=== PATIENT | female | born 1930 | race Two or more races ===

== ENCOUNTER 2017-06-26 10:06 | Outpatient (CLI) | payer MEDICARE, BC | END 2017-06-26 23:59 | disposition home or self-care (01) | LOC: CARD 10:06 | PROVIDERS: ATTEND Internal Medicine Interventional Cardiology | DX: R09.89 Other specified symptoms and signs involving the circulatory and respiratory systems (principal) | CPT/HCPCS: 93880-TC ==

== ENCOUNTER 2017-11-06 10:56 | Outpatient (CLI) | payer MEDICARE, BC | END 2017-11-06 23:59 | disposition home or self-care (01) | LOC: CARD 10:56 | PROVIDERS: ATTEND Internal Medicine Interventional Cardiology | DX: I82.409 Acute embolism and thrombosis of unspecified deep veins of unspecified lower extremity (principal); M79.605 Pain in left leg; M79.604 Pain in right leg; M79.89 Other specified soft tissue disorders; I10 Essential (primary) hypertension; E78.5 Hyperlipidemia, unspecified; M19.90 Unspecified osteoarthritis, unspecified site | CPT/HCPCS: 93970-TC ==

== ENCOUNTER 2018-02-11 16:14 | Emergency (ER) | payer MEDICARE, BC ==
[~2018-02-11] VITALS: Ht 165.1 cm; Wt 83.9 kg
[2018-02-11 16:14] VITALS: BP 113/58
[~2018-02-11 16:14] MED LIST: ACID1TAB12 PO; ASPI-1169 PO; ATOR10TA PO; BETA1TAB18 PO; DILT120C51 PO; HYDR20TA3 PO; HYDR5TAB2 PO; LEVO100T PO; METO50TA16 PO; UBID100C13 PO
== END 2018-02-11 17:31 | disposition home or self-care (01) ==
LOC: ER 16:19
DX: S80.811A Abrasion, right lower leg, initial encounter (principal); L03.115 Cellulitis of right lower limb; I48.91 Unspecified atrial fibrillation; I10 Essential (primary) hypertension; M54.9 Dorsalgia, unspecified; Z98.890 Other specified postprocedural states; Z95.0 Presence of cardiac pacemaker; Z88.8 Allergy status to other drugs, medicaments and biological substances; Z60.2 Problems related to living alone; Z90.89 Acquired absence of other organs; Z79.82 Long term (current) use of aspirin; W22.8XXA Striking against or struck by other objects, initial encounter; Y93.89 Activity, other specified; Y92.89 Other specified places as the place of occurrence of the external cause; Y99.8 Other external cause status
CPT/HCPCS: 99283; A4606; A6403; Z7610

== ENCOUNTER 2018-07-04 19:09 | Emergency (ER) | payer MEDICARE, BC ==
[~2018-07-04] VITALS: Ht 162.6 cm; Wt 81.2 kg
[~2018-07-04 19:09] MED LIST changes: +HYDR20TA17 PO; -HYDR20TA3 PO; -HYDR5TAB2 PO; +HYDR5TAB7 PO
[2018-07-04 19:17] VITALS: BP 158/79
--- NOTE | 2018-07-04 19:26 | NUR ---
pt bibself, c/o r eye redness and drainage, afebrile, deneis any sob, vs stable, placed on er bed 9 awaiting to be eval by er md.
== END 2018-07-04 19:35 | disposition home or self-care (01) ==
LOC: ER 19:11
DX: H10.89 Other conjunctivitis (principal); R60.0 Localized edema; I10 Essential (primary) hypertension; Z95.0 Presence of cardiac pacemaker; Z98.890 Other specified postprocedural states; Z90.89 Acquired absence of other organs; Z60.2 Problems related to living alone; Z79.82 Long term (current) use of aspirin; Z88.8 Allergy status to other drugs, medicaments and biological substances

== ENCOUNTER 2018-07-11 19:14 | Emergency (ER) | payer MEDICARE, BC ==
[~2018-07-11] VITALS: Ht 165.1 cm; Wt 84.8 kg
[2018-07-11 19:27] VITALS: BP 147/97
--- NOTE | 2018-07-11 19:54 | NUR ---
Patient discharged to home in stable condition. Written and verbal after care instructions given. Patient verbalizes understanding of instruction.
== END 2018-07-11 19:57 | disposition home or self-care (01) ==
LOC: ER 19:16
DX: J20.9 Acute bronchitis, unspecified (principal); I10 Essential (primary) hypertension; I48.91 Unspecified atrial fibrillation; Z95.0 Presence of cardiac pacemaker; Z98.890 Other specified postprocedural states; Z60.2 Problems related to living alone; Z79.82 Long term (current) use of aspirin; Z88.8 Allergy status to other drugs, medicaments and biological substances